=== PATIENT | male | born 1945 | race Caucasian/White ===

== ENCOUNTER 2020-09-23 12:41 | Emergency (ER) | payer MEDICARE, OTHER | END 2020-09-23 14:17 | disposition home or self-care (01) | LOC: CSHERS 12:41 | DX: T83.9XXA Unspecified complication of genitourinary prosthetic device, implant and graft, initial encounter (principal); E11.9 Type 2 diabetes mellitus without complications; I11.0 Hypertensive heart disease with heart failure; I50.9 Heart failure, unspecified; J44.9 Chronic obstructive pulmonary disease, unspecified; Z87.891 Personal history of nicotine dependence | CPT/HCPCS: 51702 ==

== ENCOUNTER 2023-10-09 05:52 | Day surgery (SDC) | payer MEDICARE, OTHER ==
[2023-10-07 14:13] VITALS: BMI 41.0
[2023-10-09] MEDS ORDERED: Fentanyl 250 MCG/5 ML VIAL ONE (06:40)
[2023-10-09] MEDS ORDERED: Rocuronium Bromide 10 MG/ML (10ML VIAL) ONE (06:40)
[2023-10-09] MEDS ORDERED: Dexamethasone 20 MG/5 ML VIAL ONE (06:40)
[2023-10-09] MEDS ORDERED: Lidocaine 1% PF 5 ML VIAL ONE (06:40)
[2023-10-09] MEDS ORDERED: PROPOFOL 20 ML ONE (06:40)
[2023-10-09] MEDS ORDERED: Ondansetron PF 4 MG/2 ML Vial ONE (06:40)
[2023-10-09] MEDS ORDERED: Midazolam HCl 2 mg/2 ml Vial ONE (06:40)
[2023-10-09] MEDS ORDERED: Ketorolac Tromethamine 30 MG (1 mL) VIAL ONE (06:41)
[2023-10-09] MEDS ORDERED: PHENYLEPHRINE-NS 100 MCG/ML 10 ML SYRINGE ONE (06:41)
[2023-10-09] MEDS ORDERED: SUGAMMADEX SODIUM 200 MG/2 ML VIAL ONE (06:46)
[2023-10-09] MEDS ORDERED: Bupivacaine PF 0.5% 30 ML VIAL ONE (06:57)
[2023-10-09] MEDS ORDERED: EPINEPHrine 1 MG/ML VIAL ONE (06:57)
[2023-10-09] MEDS ORDERED: CEFAZOLIN 2 GM VIAL ONE (07:15)
[2023-10-09] MEDS ORDERED: Glycopyrrolate 0.2 MG/ML 5 ML SYRINGE ONE (07:39)
[2023-10-09] MEDS ORDERED: ePHEDrine Sulfate 50 MG/10 ML VIAL ONE (07:54)
[2023-10-09] MEDS ORDERED: Albuterol HFA (OR) 200 PUFF INH ONE (07:56)
[2023-10-09] MEDS ORDERED: HYDROcodone/Acetaminophen 5/325 mg Tablet PO PRN (09:34)
== END 2023-10-09 11:55 | disposition home or self-care (01) ==
LOC: CSHSDC 05:52
PROVIDERS: ATTEND Surgery
PROC: 0YUA4JZ Supplement Bilateral Inguinal Region with Synthetic Substitute, Percutaneous Endoscopic Approach (ICD-10-PCS; principal; 2023-10-09)
PROC: 0VQ Male Reproductive System, Repair (ICD-10-PCS; 2023-10-09)
DX: K40.20 Bilateral inguinal hernia, without obstruction or gangrene, not specified as recurrent (principal); N43.3 Hydrocele, unspecified; E66.01 Morbid (severe) obesity due to excess calories; I25.10 Atherosclerotic heart disease of native coronary artery without angina pectoris; E78.5 Hyperlipidemia, unspecified; I12.0 Hypertensive chronic kidney disease with stage 5 chronic kidney disease or end stage renal disease; N18.30 Chronic kidney disease, stage 3 unspecified; I50.20 Unspecified systolic (congestive) heart failure; I35.0 Nonrheumatic aortic (valve) stenosis; E11.9 Type 2 diabetes mellitus without complications; E05.90 Thyrotoxicosis, unspecified without thyrotoxic crisis or storm; Z79.82 Long term (current) use of aspirin; Z68.41 Body mass index [BMI] 40.0-44.9, adult; Z87.891 Personal history of nicotine dependence; Z79.899 Other long term (current) drug therapy; Z91.030 Bee allergy status; J45.909 Unspecified asthma, uncomplicated; Z98.890 Other specified postprocedural states
CPT/HCPCS: 49650; 55060; 82962; C1781 ×2; J0171; 36416; J0665; J1100; J1885; J2250; J2405; J2704; J3010